=== PATIENT | female | born 1970 | race Hispanic/Latino ===

== ENCOUNTER → 2020-07-16 | Outpatient (CLI) | payer MEDICARE ==
[~2020-07-16] VITALS: Ht 160 cm; Wt 83.0 kg
[~2020-07-16] MED LIST: AMLO10TA7 PO; CALC667T6 PO; CEFUROXIME SODIUM 1.5 GM VIAL IVP ONE; CEFUROXIME SODIUM 1.5 GM VIAL ONE; GLIP10TA9 PO; HYDR-4153 PO; INSU100I21 SQ; LISI40TA4 PO; METO50TA18 PO; ROSU10TA28 PO; SODIUM CHLORIDE 0.9% 1000ML 1,000 ML IV ONE
[2020-07-17 08:23] LABS: BASOPHILS % (AUTO) 0.6 % (0.0-5.0); EOSINOPHILS % (AUTO) 1.8 % (0.0-8.0); HEMATOCRIT 33.4 % (36-48); LYMPHOCYTES % (AUTO) 23.8 % (21.0-51.0); MEAN CORPUSCULAR HEMOGLOBIN 32.5 pg (27.0-33.0); MEAN CORPUSCULAR HGB CONC 33.2 g/dL (32.0-36.0); MEAN CORPUSCULAR VOLUME 97.7 fL (79-99); MONOCYTES % (AUTO) 10.6 % (3.0-13.0); NEUTROPHILS % (AUTO) 62.8 % (40.0-77.0); PLATELET COUNT (AUTO) 217 K/uL (130-400); RED BLOOD CELL COUNT(AUTO) 3.42 MIL/uL (4.00-5.50); RED CELL DISTRIBUTION WIDTH 15.1 % (11.0-15.5); WHITE BLOOD COUNT (AUTO) 8.6 K/uL (4.8-10.8)
[2020-07-17 08:28] VITALS: BP 160/75
[2020-07-17 08:34] LABS: HEMOGLOBIN A1C 8.7 % (4.0-6.0)
[2020-07-17 08:35] LABS: INR 0.96 (0.85-1.15); PARTIAL THROMBOPLASTIN TIME 24.6 SEC (26.3-35.5); PROTHROMBIN TIME 10.4 SEC (9.6-11.6)
[2020-07-17 08:37] LABS: ALBUMIN 3.2 g/dL (3.5-5.0); BILIRUBIN,TOTAL 0.3 mg/dL (0.2-1.0); CREATININE 6.5 mg/dL (0.5-1.5); POTASSIUM 3.9 mmol/L (3.5-5.1); TOTAL PROTEIN, SERUM 7.4 g/dL (6.0-8.3)
== END ==
LOC: EDSTATUS 07-15 12:00 → DAH 06:00
PROVIDERS: ATTEND Thoracic Surgery (Cardiothoracic Vascular Surgery)
DX: Z01.818 Encounter for other preprocedural examination (principal); R94.31 Abnormal electrocardiogram [ECG] [EKG]; Z20.828 Contact with and (suspected) exposure to other viral communicable diseases; Z79.01 Long term (current) use of anticoagulants
CPT/HCPCS: 36415; 80053; 83036; 85025; 85610; 85730; 87426; C9803; U0003; J0697; J7030

== ENCOUNTER 2020-12-09 08:06 | Day surgery (SDC) | payer OTHER ==
[2020-12-09] VITALS (16 sets, daily range): BP systolic 115–153; BP diastolic 63–78
[~2020-12-09 08:06] MED LIST changes: +AMLO-258 PO; -AMLO10TA7 PO; -CEFUROXIME SODIUM 1.5 GM VIAL IVP ONE; -CEFUROXIME SODIUM 1.5 GM VIAL ONE; -LISI40TA4 PO; +LISI40TA9 PO; -SODIUM CHLORIDE 0.9% 1000ML 1,000 ML IV ONE
[2020-12-09] MEDS ORDERED: ALTEPLASE 2MG VIAL 2 MG/VIAL VIAL IVCATH ONE (08:07)
[2020-12-09] MEDS ORDERED: 0.9%NACL 1000ML 1,000 ML IV ONE (09:22)
[2020-12-09] MEDS ORDERED: IODIXANOL 320 MG/ML 100 ML VIAL ONE ×2 (10:22→11:42)
[2020-12-09] MEDS ORDERED: HEPARIN 10,000 UNIT/10ML (1,000 UNIT/ML) VIAL ONE (10:22)
[2020-12-09] MEDS ORDERED: LIDOCAINE HCL 1% MDV 50ML VIAL ONE (10:23)
[2020-12-09] MEDS ORDERED: MIDAZOLAM HCL 1 MG/ML 2ML VIAL ONE (10:23)
[2020-12-09] MEDS ORDERED: FENTANYL CITRATE PF 50 MCG/1 ML 2ML VIAL ONE (10:23)
[2020-12-09] MEDS ORDERED: NICARDIPINE 25MG INJ IV ONE (11:42)
[2020-12-09] MEDS ORDERED: NITROGLYCERIN 2 MG VIAL IV ONE (11:42)
[2020-12-09] MEDS ORDERED: HEPARIN 1,000 UNIT VIAL ONE (12:34)
== END 2020-12-09 17:47 | disposition home or self-care (01) ==
LOC: DAH 08:06
PROVIDERS: ATTEND Internal Medicine Nephrology
DX: T82.868A Thrombosis due to vascular prosthetic devices, implants and grafts, initial encounter (principal); T82.858A Stenosis of other vascular prosthetic devices, implants and grafts, initial encounter; E11.22 Type 2 diabetes mellitus with diabetic chronic kidney disease; I12.0 Hypertensive chronic kidney disease with stage 5 chronic kidney disease or end stage renal disease; N18.6 End stage renal disease; E78.5 Hyperlipidemia, unspecified; G93.41 Metabolic encephalopathy; Z86.73 Personal history of transient ischemic attack (TIA), and cerebral infarction without residual deficits; Z99.2 Dependence on renal dialysis; Y83.2 Surgical operation with anastomosis, bypass or graft as the cause of abnormal reaction of the patient, or of later complication, without mention of misadventure at the time of the procedure
CPT/HCPCS: 36558; 36905; 82948 ×3; A4215; A4216; A4221; A4222; A4223 ×3; A4606; A4663; C1725 ×3; C1750; C1769 ×5; C1894 ×4; J1644 ×4; J2997; J3490 ×3; J7030; Q9967 ×2; J2250; J3010

== ENCOUNTER → 2024-10-15 | Outpatient (CLI) | payer MEDICARE ==
[~2024-10-15] MED LIST changes: +GLIP10TA16 PO; -GLIP10TA9 PO; -HYDR-4153 PO; +HYDR25TA67 PO; -INSU100I21 SQ; +INSU100I22 SQ; -ROSU10TA28 PO; +ROSU10TA72 PO
--- NOTE | 2024-10-15 18:01 | HMCSR ---
APPROVED REPORT Laterality: Bilateral Indications Claudication: , PAD VELOCITY AND DOPPLER WAVEFORM ANALYSIS SUPERVISOR RESIDENTIAL (R) cm/sec, Not visualizedCFA (L) cm/sec, Not visualized Fem Art Prox. (R) 63.7cm/sec, Biphasic, Fem Art Prox. (L) 109.0cm/sec, Biphasic, Fem Art Mid. (R) 62.8cm/sec, Biphasic, Fem Art Mid. (L) 54.6cm/sec, Biphasic, Fem Art Dist (R) 55.9cm/sec, Biphasic, Fem Art Dist. (L) 59.5cm/sec, Biphasic, Pop Art(AK) (R) 64.9cm/sec, Biphasic, Pop Art (AK) (L) 61.0cm/sec, Biphasic, Pop Art (Fossa)(R) 76.3cm/sec, Biphasic, Pop Art (Fossa) (L) 65.5cm/sec, Biphasic, Pop Art(BK) (R) 82.5cm/sec, Biphasic, Pop Art (BK) (L) 70.0cm/sec, Biphasic, TRANSPLANT IMMUNOLOGIST Dist. (R) 41.4cm/sec, Biphasic, TRANSPLANT IMMUNOLOGIST Dist. (L) 47.3cm/sec, Monophasic, Per Art Dist. (R) 38.6cm/sec, Biphasic, Per Art Dist. (L) 28.7cm/sec, Monophasic, JOANIE Dist. (R) 29.2cm/sec, Biphasic, JOANIE Dist. (L) 17.9cm/sec, Monophasic, Technologist Impression Monophasic waveforms in the Left infra-popliteal arteries. *Technically difficult study due to patient scanned in wheelchair* Conclusion Monophasic waveforms noted in left lower extremity infrapopliteal vessels underlying clinical correla tion recommended Technically difficult study Conclusion Monophasic waveforms noted in left lower extremity infrapopliteal vessels underlying clinical correla tion recommended
--- NOTE | 2024-10-15 18:01 | HMCSR ---
APPROVED REPORT Bilateral Lower Extremity Venous Study for DVT., Venous Competence. Indications Lower Extremity Edema: Vein Imaging CFV (R): Normal flow, augmentation and compression. No evidence of DVT. FEM (R): Normal flow, augmentation and compression. No evidence of DVT. POP (R): Normal flow, augmentation and compression. No evidence of DVT. PTV (R): Normal flow, augmentation and compression. No evidence of DVT. Peroneals (R): Normal flow, augmentation and compression. No evidence of DVT. CFV (L): Normal flow, augmentation and compression. No evidence of DVT. FEM (L): Normal flow, augmentation and compression. No evidence of DVT. POP (L): Normal flow, augmentation and compression. No evidence of DVT. PTV (L): Normal flow, augmentation and compression. No evidence of DVT. Peroneals (L): Normal flow, augmentation and compression. No evidence of DVT. Technologist Impression Deep veins of the bilateral lower extremities appear patent and compressible without evidence of thro mbus. Right and left GSV/SSV were not seen well. *Technically difficult & limited study due to patient scanned in wheelchair* Technically difficult study Conclusion No DVT Technically suboptimal study Conclusion No DVT Technically suboptimal study
== END | disposition home or self-care (01) ==
LOC: SHCH 13:35
PROVIDERS: ATTEND Internal Medicine Cardiovascular Disease
DX: I87.2 Venous insufficiency (chronic) (peripheral) (principal); I87.1 Compression of vein; I73.9 Peripheral vascular disease, unspecified
CPT/HCPCS: 93925; 93970